=== PATIENT | female | born 1990 | race African-American/Black ===

== ENCOUNTER 2017-12-26 05:14 | Emergency (ER) | payer BC, MEDICAID ==
[~2017-12-26] VITALS: Ht 160 cm; Wt 105.0 kg
[~2017-12-26 05:14] MED LIST: LABE300T PO; NEOFA GT; PREN-142 PO
[2017-12-26] MEDS ORDERED: SODIUM CHLORIDE 0.9% 1,000 ML IV ONE (06:34)
[2017-12-26 07:00] LABS: CLARITY URINE TURBID (CLEAR); COLOR URINE YELLOW (YELLOW); KETONES URINE TRACE (NEGATIVE); LEUKOCYTE ESTERASE URINE 3+ (NEGATIVE); NITRITE URINE POSITIVE (NEGATIVE); OCCULT BLOOD URINE TRACE (NEGATIVE); PROTEIN URINE TRACE (NEGATIVE); SPECIFIC GRAVITY URINE 1.029 (1.005-1.030); UROBILINOGEN URINE 0.2 E.U./dL (0.2-1.0)
[2017-12-26 08:14] LABS: BASOPHILS % 0.6 % (0.0-2.0); EOSINOPHILS % 0.7 % (0.0-5.0); HEMATOCRIT. 35.9 % (36.0-48.0); HEMOGLOBIN. 11.8 g/dL (12.0-16.0); LYMPHOCYTES % 31.6 % (20.0-50.0); MEAN CORPUSCULAR HEMOGLOBIN 24.8 pg (28.0-32.0); MEAN CORPUSCULAR VOLUME 75.3 fL (81.0-99.0); MEAN PLATELET VOLUME 7.8 fl (7.4-10.4); MONOCYTES % 10.2 % (2.0-8.0); NEUTROPHILS % 56.9 % (40.0-76.0); PLATELET 231 x1000/uL (130-400); RED BLOOD CELL COUNT 4.77 mill/uL (4.2-5.4); RED CELL DISTRIBUTION WIDTH 14.6 % (11.6-14.6)
[2017-12-26] MEDS ORDERED: CEFTRIAXONE 1 G PREMIX 50 ML IV ONE (08:15)
[2017-12-26 08:19] LABS: CHLORIDE 107 mEq/L (98-107)
[2017-12-26 08:46] LABS: B-HCG QUANTITATIVE 42337 mIU/mL (<3)
[2017-12-26] MEDS ORDERED: METRONIDAZOLE 500MG TABLET PO ONE (09:15)
[2017-12-26 09:38] VITALS: BP 133/83
== END 2017-12-26 09:43 | disposition home or self-care (01) ==
LOC: ER 05:14
DX: O26.891 Other specified pregnancy related conditions, first trimester (principal); O16.1 Unspecified maternal hypertension, first trimester; O20.9 Hemorrhage in early pregnancy, unspecified; O23.11 Infections of bladder in pregnancy, first trimester; Z3A.11 11 weeks gestation of pregnancy; Z88.6 Allergy status to analgesic agent
CPT/HCPCS: 36415; 76801; 76817; 80053; 81003; 81025; 84702; 85025; 86850; 86900; 86901; 87077; 87086; 87186; 96361; 96365; 99285; J0696; J7030

== ENCOUNTER 2018-02-06 15:37 | Emergency (ER) | payer BC, MEDICAID ==
[~2018-02-06] VITALS: Ht 160 cm; Wt 115.0 kg
[2018-02-06 16:06] VITALS: BP 130/83
== END 2018-02-07 00:30 | disposition left against medical advice (07) ==
LOC: ER 15:37
DX: R11.0 Nausea (principal)
CPT/HCPCS: 81025; 99282

== ENCOUNTER 2018-06-20 07:30 | Emergency (ER) | payer BC, MEDICAID ==
[~2018-06-20] VITALS: Ht 160 cm; Wt 109.2 kg
[~2018-06-20 07:30] MED LIST changes: -LABE300T PO; +LABE300T3 PO
[2018-06-20] MEDS ORDERED: FLUTICASONE PROPIONATE 50MCG/SPRAY BOTTLE BOTHNSTRLS STA (08:59)
[2018-06-20] MEDS ORDERED: ACETAMINOPHEN 325MG TABLET PO ONE (09:00)
[2018-06-20 09:34] LABS: BASOPHILS % 0.5 % (0.0-2.0); EOSINOPHILS % 1.1 % (0.0-5.0); HEMATOCRIT. 41.8 % (36.0-48.0); HEMOGLOBIN. 13.7 g/dL (12.0-16.0); LYMPHOCYTES % 23.4 % (20.0-50.0); MEAN CORPUSCULAR HEMOGLOBIN 26.2 pg (28.0-32.0); MEAN CORPUSCULAR VOLUME 79.8 fL (81.0-99.0); MEAN PLATELET VOLUME 8.4 fl (7.4-10.4); MONOCYTES % 10.2 % (2.0-8.0); NEUTROPHILS % 64.8 % (40.0-76.0); PLATELET 224 x1000/uL (130-400); RED BLOOD CELL COUNT 5.23 mill/uL (4.2-5.4); RED CELL DISTRIBUTION WIDTH 13.5 % (11.6-14.6)
[2018-06-20 09:35] LABS: CHLORIDE 106 mEq/L (98-107)
[2018-06-20 09:56] LABS: CLARITY URINE CLOUDY (CLEAR); COLOR URINE YELLOW (YELLOW); KETONES URINE NEGATIVE (NEGATIVE); LEUKOCYTE ESTERASE URINE 2+ (NEGATIVE); NITRITE URINE NEGATIVE (NEGATIVE); OCCULT BLOOD URINE NEGATIVE (NEGATIVE); PH URINE 5.5 (4.5-8.0); PROTEIN URINE NEGATIVE (NEGATIVE); SPECIFIC GRAVITY URINE 1.028 (1.005-1.030); UROBILINOGEN URINE 0.2 E.U./dL (0.2-1.0)
[2018-06-20] MEDS ORDERED: AZITHROMYCIN 500 MG TABLET PO ONE (11:00)
[2018-06-20] MEDS ORDERED: CEFTRIAXONE SODIUM 250 MG/VIAL IM ONE (11:00)
[2018-06-20] MEDS ORDERED: ONDANSETRON HCL 4MG TABLET PO ONE (11:00)
[2018-06-20] MEDS ORDERED: METRONIDAZOLE 500MG TABLET PO ONE (11:00)
[2018-06-20 11:42] VITALS: BP 128/78
[2018-06-22 04:15] LABS: CHLAMYDIA TRACHOMATIS NAA Negative (Negative); NEISSERIA GONORRHOEAE NAA Negative (Negative)
== END 2018-06-20 11:49 | disposition home or self-care (01) ==
LOC: ER 08:46
DX: B34.9 Viral infection, unspecified (principal); A59.9 Trichomoniasis, unspecified; I10 Essential (primary) hypertension; F17.200 Nicotine dependence, unspecified, uncomplicated; Z98.890 Other specified postprocedural states
CPT/HCPCS: 36415; 71045; 80053; 81003; 81025; 85025; 87070; 87077; 87086; 87210; 87430; 87491; 87591; 87804; 96372; 99284; J0696; Q0162

== ENCOUNTER 2019-01-31 12:50 | Emergency (ER) | payer BC, MEDICAID, OTHER ==
[~2019-01-31] VITALS: Ht 160 cm; Wt 110.4 kg
[~2019-01-31 12:50] MED LIST changes: -PREN-142 PO; +PRENATAL ONE T1 EACH PO
[2019-01-31 13:30] VITALS: BP 134/88
[2019-01-31] MEDS ORDERED: ACETAMINOPHEN 325MG TABLET PO ONE (14:15)
[2019-01-31] MEDS ORDERED: ACETAMINOPHEN 325MG TABLET ONE (14:24)
== END 2019-01-31 19:12 | disposition home or self-care (01) ==
LOC: ER 12:50
DX: R51 Headache (principal); E16.2 Hypoglycemia, unspecified; I10 Essential (primary) hypertension; F17.200 Nicotine dependence, unspecified, uncomplicated; Z98.890 Other specified postprocedural states; Z79.899 Other long term (current) drug therapy; Z88.5 Allergy status to narcotic agent
CPT/HCPCS: 82962; 99282

== ENCOUNTER 2019-03-27 21:19 | Emergency (ER) | payer OTHER | END 2019-03-27 21:44 | disposition left against medical advice (07) | LOC: ER 21:19 | DX: Z53.21 Procedure and treatment not carried out due to patient leaving prior to being seen by health care provider (principal) ==

== ENCOUNTER 2021-06-28 06:21 | Emergency (ER) | payer OTHER ==
[~2021-06-28] VITALS: Ht 165.1 cm; Wt 62.6 kg
[2021-06-28] MEDS ORDERED: MAGNESIUM/ALUMINUM HYDROXIDE/SIMETHICONE 30ML UDC PO ONE (07:15)
[2021-06-28] MEDS ORDERED: DICYCLOMINE 10 MG/5 ML ORAL SYR PO ONE (07:15)
[2021-06-28] MEDS ORDERED: VISCOUS LIDOCAINE 2% 15 ML UDC PO ONE (07:15)
[2021-06-28 08:04] LABS: HEMATOCRIT. 31.5 % (36.0-48.0); HEMOGLOBIN. 9.5 g/dL (12.0-16.0); MEAN CORPUSCULAR HEMOGLOBIN 20.8 pg (28.0-32.0); RED BLOOD CELL COUNT 4.57 mill/uL (4.2-5.4); RED CELL DISTRIBUTION WIDTH 18.9 % (11.6-14.6)
[2021-06-28 08:15] LABS: CHLORIDE 112 mEq/L (98-107)
[2021-06-28 08:49] LABS: CLARITY URINE CLEAR (CLEAR); COLOR URINE YELLOW (YELLOW); KETONES URINE NEGATIVE (NEGATIVE); LEUKOCYTE ESTERASE URINE TRACE (NEGATIVE); NITRITE URINE POSITIVE (NEGATIVE); OCCULT BLOOD URINE 3+ (NEGATIVE); PH URINE 5.5 (4.5-8.0); PROTEIN URINE NEGATIVE (NEGATIVE); SPECIFIC GRAVITY URINE 1.027 (1.005-1.030)
[2021-06-28] MEDS ORDERED: OMEP40CA20 MT (08:56)
[2021-06-28] MEDS ORDERED: DIF15 MT (08:56)
[2021-06-28] MEDS ORDERED: FLUCONAZOLE 100MG TABLET PO ONE (09:00)
[2021-06-28 09:18] VITALS: BP 122/68
[2021-06-28 09:43] LABS: PLATELET 301 x1000/uL (130-400)
[2021-06-28 09:47] LABS: PLATELET ESTIMATE NORMAL
== END 2021-06-28 09:31 | disposition home or self-care (01) ==
LOC: ER 06:21
DX: R07.89 Other chest pain (principal); Z88.5 Allergy status to narcotic agent
CPT/HCPCS: 36415; 71045; 80053; 81003; 81025; 85025; 93005; 99285